=== PATIENT | female | born 1995 | race Caucasian/White ===

== ENCOUNTER 2017-02-21 19:57 | Emergency (ER) | payer MEDICAID ==
[~2017-02-21] VITALS: Ht 167.6 cm; Wt 70.4 kg
[2017-02-21 20:11] VITALS: BP 127/87
[2017-02-21] MEDS ORDERED: LIDOCAINE 1%, 20ML ONE (21:41)
[2017-02-21] MEDS ORDERED: LIDOCAINE 1%, 20ML SQ ONE (22:00)
== END 2017-02-21 23:04 | disposition home or self-care (01) ==
LOC: ED 23:01
DX: L72.3 Sebaceous cyst (principal); R10.2 Pelvic and perineal pain; M25.511 Pain in right shoulder; L91.8 Other hypertrophic disorders of the skin; J45.909 Unspecified asthma, uncomplicated
CPT/HCPCS: 10061

== ENCOUNTER 2017-03-06 11:05 | Emergency (ER) | payer MEDICAID ==
[~2017-03-06] VITALS: Ht 165.1 cm; Wt 69.8 kg
[2017-03-06 11:07] VITALS: BP 115/76
[2017-03-06] MEDS ORDERED: DEXAMETHASONE 4 MG TABLET PO ONE (12:00)
[2017-03-06] MEDS ORDERED: METOCLOPRAMIDE 10MG TABLET PO ONE (12:00)
== END 2017-03-06 12:27 | disposition left against medical advice (07) ==
LOC: ED 12:21
DX: G43.901 Migraine, unspecified, not intractable, with status migrainosus (principal); J45.909 Unspecified asthma, uncomplicated
CPT/HCPCS: 99281